=== PATIENT | female | born 1985 | race Two or more races ===

== ENCOUNTER 2024-07-01 10:42 | Emergency (ER) | payer BC ==
[~2024-07-01] VITALS: Ht 152.4 cm; Wt 56.7 kg
[2024-07-01 11:05] VITALS: BP 120/76; TEMP 97.9
[2024-07-01] MEDS ORDERED: HYDROCODONE/APAP 5/325MG TABLET ONE (11:31)
[2024-07-01] MEDS ORDERED: IBUPROFEN 600 MG TABLET ONE (11:32)
[2024-07-01] MEDS ORDERED: CEPHALEXIN MONOHYDRATE 500 MG CAPSULE PO ONE (11:32)
[2024-07-01] MEDS: CEPHALEXIN MONOHYDRATE 500 MG CAPSULE PO ONE (11:37)
[2024-07-01] MEDS: IBUPROFEN 600 MG TABLET PO ONE (11:38)
[2024-07-01] MEDS: HYDROCODONE/APAP 5/325MG TABLET PO ONE (11:38)
[2024-07-01] MEDS ORDERED: IBUP-1490 PO (11:46)
[2024-07-01] MEDS ORDERED: CEPH-570 PO (11:46)
[2024-07-01 12:02] VITALS: O2SAT 98
== END 2024-07-01 12:04 | disposition home or self-care (01) ==
LOC: ER 10:51
DX: S62.634A Displaced fracture of distal phalanx of right ring finger, initial encounter for closed fracture (principal); S60.041A Contusion of right ring finger without damage to nail, initial encounter; W23.0XXA Caught, crushed, jammed, or pinched between moving objects, initial encounter; Y93.89 Activity, other specified; Y92.89 Other specified places as the place of occurrence of the external cause; Y99.8 Other external cause status
CPT/HCPCS: 73140-TC

== ENCOUNTER 2024-07-26 10:24 | Emergency (ER) | payer BC ==
[~2024-07-26] VITALS: Ht 152.4 cm; Wt 62.6 kg
[~2024-07-26 10:24] MED LIST: CEPH-570 PO; IBUP-1490 PO
[2024-07-26 10:28] VITALS: BP 97/55; TEMP 98.3
[2024-07-26 11:13] LABS: APPEARANCE,URINE CLEAR (CLEAR); BILIRUBIN,URINE NEGATIVE (NEGATIVE); BLOOD, URINE NEGATIVE Ery/uL (NEGATIVE); COLOR,URINE YELLOW (YELLOW); KETONES,URINE NEGATIVE (NEGATIVE); LEUKOCYTE ESTERASE ,URINE NEGATIVE (NEGATIVE); NITRITE, URINE NEGATIVE (NEGATIVE); PROTEIN,URINE NEGATIVE (NEGATIVE); UGLUCOSE NEGATIVE (NEGATIVE); UROBILINOGEN,URINE 0.2 EU/dL (0.2)
[2024-07-26] MEDS ORDERED: PHEN-705 PO (11:35)
[2024-07-26 11:41] VITALS: O2SAT 99
== END 2024-07-26 11:42 | disposition home or self-care (01) ==
LOC: ER 10:31
DX: R30.0 Dysuria (principal); Z87.440 Personal history of urinary (tract) infections
CPT/HCPCS: 87086-TC